=== PATIENT | female | born 1940 | race Caucasian/White ===

== ENCOUNTER 2016-12-29 09:51 | Observation (INO) | payer OTHER ==
[~2016-12-29] VITALS: Ht 167.6 cm; Wt 75.0 kg
[2016-12-29 10:33] LABS: EOSINOPHIL (%) 1.2 % (0-5); EOSINOPHIL COUNT 0.1 K/uL (0-0.3); HEMATOCRIT 36.9 % (36.0-46.0); IMMATURE GRANULOCYTE (%) 0.2 % (0.0-0.7); INSTRUMENT ABS NEUTROPHIL CT 2.6 K/uL; LYMPHOCYTE COUNT 1.8 K/uL (1.0-2.8); MCH 30.8 PG (29.0-34.0); MCHC 33.3 G/DL (30.0-36.0); MCV 92.5 FL (83-99); MEAN PLAT.VOLUME 9.1 uM^3 (9.5-12.4); MONOCYTE (%) 8.4 % (3-12); MONOCYTE COUNT 0.4 K/uL (0-0.8); NEUTROPHIL (%) 52.5 % (45-76); NEUTROPHIL COUNT 2.6 K/uL (1.8-6.4); PLATELET COUNT 278 K/uL (156-360); RBC DIS.WIDTH-CV 13.2 % (11.8-14.6); RBC DIS.WIDTH-SD 45.7 % (39-53); RED BLOOD COUNT 3.99 M/uL (3.80-5.20); WHITE BLOOD COUNT 4.9 K/uL (4.1-10.2)
[2016-12-29 10:39] LABS: PROTHROMBIN TIME 11.2 SEC (10.2-12.9)
[2016-12-29 10:41] LABS: CHLORIDE 104 mEq/L (99-109); POTASSIUM 3.9 mEq/L (3.7-5.4); SODIUM 141 mEq/L (136-147)
[2016-12-29 10:42] LABS: MAGNESIUM 2.3 mg/dL (1.3-2.7)
[2016-12-29 10:43] LABS: GLUCOSE 100 mg/dL (70-99)
[2016-12-29 10:45] LABS: ANION GAP 13 MEQ/L (2-14)
[2016-12-29 10:47] LABS: GFR ESTIMATE (CALCULATED) > 59 mL/min/
[2016-12-29 10:48] LABS: UREA NITROGEN (BUN) 9 mg/dL (9-23)
[2016-12-29 10:53] LABS: TROP-I INTERPRETATION NEGATIVE; TROPONIN-I < 0.01 ng/mL (0.0-0.30)
[2016-12-29] MEDS ORDERED: LIPITOR10 MG PO (12:47)
[2016-12-29] MEDS ORDERED: DILANTIN100 MG PO (12:47)
[2016-12-29] MEDS ORDERED: PHENOBARBITAL32.4 MG PO (12:47)
[2016-12-29] MEDS ORDERED: PROTONIX40 MG PO (12:47)
[2016-12-29] MEDS ORDERED: PRINIVIL10 MG PO (12:47)
[2016-12-29] MEDS ORDERED: TURMERIC500 MG PO (12:48)
[2016-12-29] MEDS ORDERED: VITAMIN C1000 MG PO (12:48)
[2016-12-29] MEDS ORDERED: ONCE DAILY1 EACH PO (12:48)
[2016-12-29] MEDS ORDERED: MAGNESIUM27 MG PO (12:49)
[2016-12-29 13:17] LABS: HDL CHOLESTEROL 83 MG/DL (Desirable>=50); LDL CHOLESTEROL 113 mg/dL (Desirable<100); NON-HDL CHOLESTEROL 135 mg/dL (Desirable<160); TOTAL CHOLESTEROL 218 mg/dL (Desirable<200); TRIGLYCERIDES 109 MG/DL (Normal: <150)
[2016-12-29 13:41] VITALS: BP 154/74
[2016-12-29] MEDS ORDERED: CALCIUM 250+D1 EACH PO (15:15)
[2016-12-29 15:21] VITALS: BP 133/66
[2016-12-29 17:10] LABS: TROP-I INTERPRETATION NEGATIVE; TROPONIN-I < 0.01 ng/mL (0.0-0.30)
[2016-12-29 20:07] VITALS: BP 107/64
[2016-12-29 23:05] VITALS: BP 103/56
[2016-12-29 23:25] LABS: TROP-I INTERPRETATION NEGATIVE; TROPONIN-I < 0.01 ng/mL (0.0-0.30)
[2016-12-30 04:32] VITALS: BP 115/56
[2016-12-30 08:45] VITALS: BP 129/66
[2016-12-30] MEDS ORDERED: ASPIR-LOW81 MG PO (11:33)
[2016-12-30 12:24] VITALS: BP 117/55
== END 2016-12-30 12:57 | disposition home or self-care (01) ==
LOC: EME 09:51 → EDOF 12:31 → 5WEST 12:31 → ENRESERV 12:32 → 5WEST 13:33
PROVIDERS: Emergency Medicine; Internal Medicine
DX: R07.89 Other chest pain (principal); I10 Essential (primary) hypertension; G40.909 Epilepsy, unspecified, not intractable, without status epilepticus; Z83.3 Family history of diabetes mellitus; K21.9 Gastro-esophageal reflux disease without esophagitis; E78.5 Hyperlipidemia, unspecified; R53.1 Weakness
CPT/HCPCS: 71010; 80048; 80061; 83735; 84484; 85025; 85610; 85730; 93005; 99281; 99285; G0378; J1650

== ENCOUNTER 2017-09-28 13:53 | Emergency (ER) | payer OTHER ==
[~2017-09-28] VITALS: Ht 167.6 cm; Wt 77.3 kg
[~2017-09-28 13:53] MED LIST: ASPIR-LOW81 MG PO; CALCIUM 250+D1 EACH PO; DILANTIN100 MG PO; LIPITOR10 MG PO; MAGNESIUM27 MG PO; ONCE DAILY1 EACH PO; PHENOBARBITAL32.4 MG PO; PRINIVIL10 MG PO; PROTONIX40 MG PO; TURMERIC500 MG PO; VITAMIN C1000 MG PO
[2017-09-28 14:44] LABS: HEMATOCRIT 35.7 % (36.0-46.0); HEMOGLOBIN 12.3 G/DL (11.9-15.5); MCH 31.5 PG (29.0-34.0); MCHC 34.5 G/DL (30.0-36.0); MCV 91.3 FL (83-99); PLATELET COUNT 302 K/uL (156-360); RBC DIS.WIDTH-CV 13.2 % (11.8-14.6); RED BLOOD COUNT 3.91 M/uL (3.80-5.20); WHITE BLOOD COUNT 6.2 K/uL (4.1-10.2)
[2017-09-28 14:51] LABS: APPEARANCE CLEAR ((CLEAR)); BILIRUBIN NEGATIVE; BLOOD NEGATIVE; COLOR STRAW ((YELLOW)); GLUCOSE (STRIP) NEGATIVE; KETONES NEGATIVE; LEUKOCYTES NEGATIVE; NITRITE NEGATIVE; PROTEIN (STRIP) NEGATIVE; SPECIFIC GRAVITY 1.004 (1.000-1.030); UCUL ADDED? NO; UROBILINOGEN 0.2 MG/DL (0.2-1.0)
[2017-09-28 14:57] LABS: ALBUMIN 4.5 g/dL (3.2-4.8); CHLORIDE 105 mEq/L (99-109); SODIUM 142 mEq/L (136-147)
[2017-09-28 14:59] LABS: GLUCOSE 101 mg/dL (70-99); TOTAL PROTEIN 7.1 g/dL (6.4-8.3)
[2017-09-28 15:01] LABS: TOTAL BILIRUBIN 0.2 mg/dL (0.0-1.0)
[2017-09-28 15:02] LABS: ALKALINE PHOSPHATASE 78 IU/L (3-129)
[2017-09-28 15:03] LABS: CREATININE 0.7 mg/dL (0.6-1.3); GFR ESTIMATE (CALCULATED) > 59 mL/min/
[2017-09-28 15:04] LABS: AST (GOT) 19 IU/L (2-34); UREA NITROGEN (BUN) 10 mg/dL (9-23)
[2017-09-28 15:06] LABS: ALT (GPT) 12 IU/L (3-49)
[2017-09-28 18:40] VITALS: BP 146/75
[2017-09-28] MEDS ORDERED: PERCOCET 5/31 TABLET PO (19:14)
[2017-09-28 19:35] LABS: PTT 26.1 SEC (25-37)
== END 2017-09-28 18:40 | disposition home or self-care (01) ==
LOC: EME 13:53
PROVIDERS: Emergency Medicine
DX: R10.30 Lower abdominal pain, unspecified (principal); D37.6 Neoplasm of uncertain behavior of liver, gallbladder and bile ducts; I10 Essential (primary) hypertension; K21.9 Gastro-esophageal reflux disease without esophagitis; R56.9 Unspecified convulsions; Z85.9 Personal history of malignant neoplasm, unspecified
CPT/HCPCS: 74022; 80053; 81003; 85027; 85610; 85730; 99281; 99285

== ENCOUNTER → 2017-10-04 | Outpatient (CLI) | payer OTHER ==
[~2017-10-04] MED LIST changes: +PERCOCET 5/31 TABLET PO
== END | disposition home or self-care (01) ==
LOC: OPR 10:33 → EDSTATUS 12:00 → RAD 13:00 → OPR 10-07 08:00
PROC: 0WBH3ZX Excision of Retroperitoneum, Percutaneous Approach, Diagnostic (ICD-10-PCS; principal; 2017-10-04)
DX: C78.6 Secondary malignant neoplasm of retroperitoneum and peritoneum (principal); C44.310 Basal cell carcinoma of skin of unspecified parts of face; G40.909 Epilepsy, unspecified, not intractable, without status epilepticus; I10 Essential (primary) hypertension; E78.5 Hyperlipidemia, unspecified; Z80.3 Family history of malignant neoplasm of breast; Z82.49 Family history of ischemic heart disease and other diseases of the circulatory system; Z83.49 Family history of other endocrine, nutritional and metabolic diseases; Z82.3 Family history of stroke
CPT/HCPCS: 77012; 88305; 88341 TC; 88342 TC; J3010